=== PATIENT | male | born 1985 | race Hispanic/Latino ===

== ENCOUNTER 2019-11-26 14:23 | Emergency (ER) | payer SELFPAY ==
[~2019-11-26] VITALS: Ht 175.3 cm; Wt 83.9 kg
[2019-11-26] MEDS ORDERED: KETOROLAC TROMETHAMINE 60 MG/2 ML VIAL IM ONE (15:00)
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
--- OUTSIDE RECORDS SUMMARY | 2019-11-28 19:26 | XMS REPORT | Encounter Summary ---
Author Organization Unknown Address [address] [place] [address] Phone [phone] Care Team Providers Care Basic Acoustic Analyst Name Role Phone Jerrod White MD 3 [phone] Reason for Visit sinus symptoms; allergies Instructions 1. Body mass index 25-29 - overweight learning about healthy weight 2. Allergic rhinitis Kenalog 40 mg/mL suspension for inject ion fluticasone propionate 50 mcg/actuatio n nasal spray,suspension Discussion Note: None recorded. Plan of Care Patient Instructions n/s as directed + otc none sedating anti histamines Reminders Provider Appointments None recorded. Lab None recorded. Referral None recorded. Procedures None recorded. Surgeries None recorded. Imaging None recorded. Medications Name Start Date fluticasone propionate 50 mcg/actuation nasal spray,suspension Hammond 1 spray twice a day by intranasal route as directed for 10 days. Medications Administered None recorded. Vitals Height Weight BMI Blood Pressure 5 ft 9 in 182.4 lbs 26.9 kg/m2 110/70 mm[Hg] Lab Results None recorded. Allergies Code Code System Name Reaction Severity Status Onset NKDA Problems Name Status Onset Date Source Environmental Allergy Active 07/24/2018 Procedures Date Name Performed by 04/30/2009 Appendectomy Information not avai lable Vaccine List None recorded. Social History Smoking Status Never Smoker Past Encounters 07/24/2018 Body Mass Index 25-29 - Overweight; Allergic Rhinitis Jerrod White MD: [id number] [place] [address], Ph. History of Present Illness Note:Having sinus drainage due to allergies. Sinus congested at night x 1 day. Cutting grass yesterday and allergies started Review of Systems:ROS as noted in the HPI Review of Systems None recorded. Physical Exam Upper Respiratory Infection Exam Comprehensive Reported By: Patient Constitutional: General Appearance in no acu te distress Skin: Inspection and palpation: no rash, no lesions, no ulcer, good turgor, no jaundice Head: Sinuses no tenderness Eyes: Pupils EOM intact, PERRLA, c onjunctiva non-injected Ears: Right External auditory malcolm l normal appearance, no obstruction, no erythema, no discharge. Left External auditory canal normal appearance, no obstruction, no erythema, no discharge. Right Tympanic membrane mobile with pneumatic otoscopy, pearly jorge, landmarks clear. Left Tympanic membrane: mobile with pneumatic otoscopy, pearly jorge, landmarks clear Nose: Nasal Skin: no lesion, no la cerations. Nasal Mucosa normal, pink and moist, clear discharge Oral Cavity/Mouth: Lips, teeth, gums normal lip s, normal gums. Oral Mucosa: normal, moist, no lesions. Palate: normal hard palate, normal soft palate. Tongue: normal tongue, no lesion, no edema. Tonsils: normal tonsils, no lesions. Posterior pharynx: normal Lymph Nodes: Cervical no palpable lymph n ode enlargement, no submandibular adenopathy, no posterior cervical adenopathy, no anterior cervical adenopathy, no supraclavicular adenopathy Neck: Neck symmetrical, trachea mi dline Lungs: Respiratory effort unlabored . Auscultation breath sounds normal, no wheezing, no rales / crackles, no rhonchi Cardiovascular System: Auscultation regular rate an d rhythm, no murmur, no rubs, no gallops. Observation/Palpation of peripheral vascular system no varicosities, carotid pulse normal, no edema
--- OUTSIDE RECORDS SUMMARY | 2019-11-28 19:26 | XMS REPORT | Encounter Summary ---
Author Organization Unknown Address [address] [place] [address] Phone [phone] Care Team Providers Care Mechanic Driver Name Role Phone Jerrod White MD 3 [phone] Reason for Visit cough / congestion Instructions 1. Immunization Fluzone Quad 2018-(PF) 60 mcg(15 mcg x4)/0.5 mL intramuscular syringe Adacel (Tdap Adolesn/Adult)(PF)2 Lf-(2 .5-5-3-5)-5 Lf/0.5 mL IM syringe 2. Body mass index 25-29 - overweight learning about healthy weight 3. Acute bronchitis ceftriaxone 1 gram solution for inject ion dexamethasone 4 mg/mL injection soluti on Zithromax Z-Maurizio 250 mg tablet Cheratussin AC 10 mg-100 mg/5 mL oral liquid ProAir HFA 90 mcg/actuation aerosol in haler Medrol (Maurizio) 4 mg tablets in a dose pa ck Discussion Note: None recorded. Plan of Care Reminders Provider Appointments None recorded. Lab None recorded. Referral None recorded. Procedures None recorded. Surgeries None recorded. Imaging None recorded. Medications Name Start Date Cheratussin AC 10 mg-100 mg/5 mL oral li quid Take 10 mL every 4 hours by oral route. Medrol (Maurizio) 4 mg tablets in a dose pack as directed ProAir HFA 90 mcg/actuation aerosol inha ler Inhale 2 puffs every 4 hours by inhalation route. Zithromax Z-Maurizio 250 mg tablet TAKE 2 TABLETS (500 MG) BY ORAL ROUTE ONCE DAILY FOR 1 DAY THEN 1 TABLET (250 MG) BY ORAL ROUTE ONCE DAILY FOR 4 DAYS Medications Administered None recorded. Vitals Height Weight BMI Blood Pressure 5 ft 9 in 183 lbs 27 kg/m2 110/76 mm[Hg] Lab Results None recorded. Allergies Code Code System Name Reaction Severity Status Onset NKDA Problems No Known Problems Procedures Date Name Performed by 04/30/2009 Appendectomy Information not avai lable Vaccine List None recorded. Social History Smoking Status Never Smoker Past Encounters 05/16/2018 Immunization; Body Mass Index 25-29 - Overweight; Acute Bronchitis Jerrod White MD: [address] [place] [address], Ph. History of Present Illness Note:1 month h/o none productive cough <div>2 d h/o green mucoid productive cough/wheezing</div><div>h/o exercise induced asthma,controlled with inh</div> Review of Systems:ROS as noted in the [...] la cerations. Nasal Mucosa normal, pink and moist Oral Cavity/Mouth: Lips, teeth, gums normal lip s, normal gums. Oral Mucosa: normal, moist, no lesions. Palate: normal hard palate, normal soft palate. Tongue: normal tongue, no lesion, no edema. Tonsils: enlargement 2+. Posterior pharynx: erythema Lymph Nodes: Cervical no palpable lymph n [...]
--- OUTSIDE RECORDS SUMMARY | 2019-11-28 19:26 | XMS REPORT | Encounter Summary ---
Author Organization Unknown Address [address] [place] [address] Phone [phone] Care Team Providers Care Beater Machine Operator Name Role Phone Jerrod White MD 3 [phone] Reason for Visit cough / congestion Instructions 1. Seasonal allergic rhinitis fluticasone propionate 50 mcg/actuatio n nasal spray,suspension montelukast 10 mg tablet Kenalog 40 mg/mL suspension for inject ion 2. Body mass index 25-29 - overweight learning about healthy weight 3. Vaccine refused by patient Discussion Note: None recorded. Plan of Care Reminders Provider Appointments None recorded. Lab None recorded. Referral None recorded. Procedures None recorded. Surgeries None recorded. Imaging None recorded. Medications Name Start Date fluticasone propionate 50 mcg/actuation nasal spray,suspension SPRAY 1 SPRAY(S) TWICE A DAY BY INTRANASAL ROUTE DIRECTED FOR 10 DAYS. prn allergies/congestion Kenalog 40 mg/mL suspension for injectio n Take 40 mg every day by injection route for 1 day. montelukast 10 mg tablet Take 1 tablet every day by oral route at bedtime. Zyrtec Medications Administered Name Date Kenalog 40 mg/mL suspension for injectio n Take 40 mg every day by injection route for 1 day. [id number] Vitals Height Weight BMI Blood Pressure 5 ft 9 in 182 lbs 26.9 kg/m2 124/84 mm[Hg] Results Lab Results None recorded. Allergies Code Code System Name Reaction Severity Status Onset NKDA Problems Name Status Onset Date Source Environmental Allergy Active 07/24/2018 Procedures Date Name Performed by 04/30/2009 Appendectomy Information not avai lable Vaccine List None recorded. Social History Tobacco Smoking Status Never Smoker Past Encounters 06/04/2019 Seasonal Allergic Rhinitis; Body Mass Index 25-29 - Overweight; Vaccine Refused by Patient Flower Rodriguez, WIRE MILL OPERATOR: [address] [place] [address], Ph. History of Present Illness Note:Has seasonal allergies and takes zyrtec prn, sx of nasal congestion not able to breath through nose mainly at night with pnd and cough since a week.<div >works outside and exposed to environmental triggers.
<div>denies sinus pressure/cp/ dyspnea/fever. </div><div>
</div></div> Review of Systems Comprehensive General Adult ROS Reported By: Patient Constitutional: Constitutional: no fever Eyes: Eyes: no vision change ENMT: Ears: no difficulty hearing, no ear pain. Nose: no frequent nosebleeds, no sinus problems, nose problems. Mouth/Throat: no sore throat Cardiovascular: Cardiovascular: no chest hugh n Respiratory: Respiratory: no wheezing, no shortness of breath, no coughing up blood, cough Gastrointestinal: Gastrointestinal: no abdomin al pain, no nausea, no vomiting, no diarrhea Neurologic: Neurologic: no dizziness, no headaches Endocrine: Endocrine: no fatigue Allergic/Immunologic: Allergy/Immunologic: no sinu s pressure, runny nose Physical Exam Upper Respiratory Infection Exam Comprehensive Reported By: Patient Constitutional: General Appearance in no acu te distress Skin: Inspection and palpation: no rash Head: Sinuses no tenderness Eyes: Pupils PERRLA, conjunctiva n on-injected Ears: Right External auditory malcolm l normal appearance, no erythema. Left External auditory canal normal appearance, no erythema. Right Tympanic membrane pearly jorge, landmarks clear. Left Tympanic membrane: pearly jorge, landmarks clear Nose: Nasal Skin: no lesion. Nasal Mucosa pale, swollen, edematous, boggy, clear discharge Oral Cavity/Mouth: Lips, teeth, gums normal lip s. Oral Mucosa: normal. Palate: normal hard palate, normal soft palate. Tongue: normal tongue. Tonsils: normal tonsils, no lesions. Posterior pharynx: normal Lymph Nodes: Cervical no palpable lymph n ode enlargement, no submandibular adenopathy Neck: Neck symmetrical Lungs: Respiratory effort unlabored . Auscultation breath sounds normal, no wheezing, no rales / crackles Cardiovascular System: Auscultation regular rate an d rhythm
--- OUTSIDE RECORDS SUMMARY | 2019-11-28 19:26 | XMS REPORT | Clinical Summary ---
Author Author [facility] Organization [facility] Address Unknown Phone Unavailable Care Team Providers Care Plate And Frame Filter Operator Name Role Phone Asked, No Pcp PCP Unavailable Allergies No Known Allergies Medications End Date Status Medication Sig Dispensed Refills Start Date Active cyclobenzaprine Take 0.5 15 tablet 0 (FLEXERIL) 10 mg tablet tablets (5 mg 9 total) by mouth 3 (three) times a day as needed for muscle spasms. Active ibuprofen (ADVIL,MOTRIN) Take 1 tablet 30 tablet 0 600 MG tablet (600 mg 9 total) by mouth every 6 (six) hours as needed for mild pain. Active Problems Not on file Social History Date Tobacco Use Types Packs/Day Years Used Never Smoker Smokeless Tobacco: Never Used Drinks/Week oz/Week Comments Alcohol Use Yes Sex Assigned at Date Recorded Not on file Industry Job Start Date Occupation Not on file Not on file Not on file Travel End Travel History Travel Start No recent travel history available. Last Filed Vital Signs Not on file Plan of Treatment Health Maintenance Due Date Last Done Comments INFLUENZA VACCINE 11/29/2019 Results Not on fileafter 11/25/2018 Advance Directives For more information, please contact: [phone] Patient Pneumatic Press Hand Explanation Type Date Recorded Advance Directives, Living Will and Medical Power of Salon Coordinator Advance Directives, 09/26/2018 2:59 AM Living Will and Medical Power of Salon Coordinator
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
== END 2019-11-26 15:43 | disposition home or self-care (01) ==
LOC: ER 14:30
DX: S90.31XA Contusion of right foot, initial encounter (principal); M25.571 Pain in right ankle and joints of right foot; S00.511A Abrasion of lip, initial encounter; V53.5XXA Driver of pick-up truck or van injured in collision with car, pick-up truck or van in traffic accident, initial encounter; Y92.488 Other paved roadways as the place of occurrence of the external cause
CPT/HCPCS: 73610; 73630; 99283; J1885